=== PATIENT | male | born 1965 | race Caucasian/White ===

== ENCOUNTER 2017-07-16 15:12 | Inpatient (IN) | payer MEDICAID, OTHER ==
[~2017-07-16] VITALS: Ht 157.5 cm; Wt 83.4 kg
[2017-07-16] MEDS ORDERED: methylPREDNISolone SOD SUCC 125 MG/2 ML ONE ×2 (15:17→18:31)
[2017-07-16] MEDS ORDERED: ALBUTEROL 0.5%, 20ML ONE (15:23)
[2017-07-16] MEDS ORDERED: PLEASE ENTER ALLERGIES MC SCH (15:30)
[2017-07-16] MEDS ORDERED: MAGNESIUM SULFATE PMX 2GM/50ML 50 ML IVPB ONE (15:30)
[2017-07-16] MEDS ORDERED: methylPREDNISolone SOD SUCC 125 MG/2 ML IVP ONE (15:30)
[2017-07-16] MEDS ORDERED: SODIUM CHLORIDE FLUSH 10ML SYR IVF ONE (15:30)
[2017-07-16 15:46] LABS: MEAN CORPUSCULAR HEMOGLOBIN 29.1 pg (27.5-34.5); MEAN CORPUSCULAR HGB CONC 32.8 g/dL (33.2-36.2); MEAN CORPUSCULAR VOLUME 88.9 fL (81-97); MEAN PLATELET VOLUME 8.8 fL (7.4-10.4); PLATELET COUNT 211 x10^3/uL (130-400); RED BLOOD COUNT 5.93 x10^6/uL (4.38-5.82); RED CELL DISTRIBUTION WIDTH 15.3 % (9.4-14.8)
[2017-07-16 15:57] LABS: ALBUMIN 3.7 g/dL (3.4-5.0); ANION GAP 8 mmol/L (5-15); CALCIUM 8.5 mg/dL (8.5-10.1); CHLORIDE 106 mmol/L (98-107)
[2017-07-16] MEDS ORDERED: ALBUTEROL 0.5%, 20ML NPPBCONT ONE (16:00)
[2017-07-16] MEDS ORDERED: ACETAMINOPHEN 325 MG TABLET PO ONE (16:00)
[2017-07-16 16:07] LABS: BASOPHILS # (AUTO) 0.11 x10^3/uL (0-0.1); BASOPHILS % (AUTO) 1 % (0-1); EOSINOPHILS % (AUTO) 2 % (1-7); LYMPHOCYTES # (AUTO) 1.64 x10^3/uL (1-3.4); LYMPHOCYTES % (AUTO) 13 % (22-44); MD SCAN; MONOCYTES # (AUTO) 2.03 x10^3/uL (0.2-0.8); MONOCYTES % (AUTO) 16 % (2-9); NEUTROPHILS # (AUTO) 8.78 x10^3/uL (1.8-6.8); NEUTROPHILS % (AUTO) 69 % (42-75)
[2017-07-16 16:13] LABS: RAPID INFLUENZA A POSITIVE (Negative); RAPID INFLUENZA B Negative (Negative)
[2017-07-16] MEDS ORDERED: ACETAMINOPHEN 325 MG TABLET ONE (16:14)
[2017-07-16 16:18] LABS: CREATININE 0.95 mg/dL (0.7-1.3)
[2017-07-16] MEDS ORDERED: SODIUM CHLORIDE 0.9% 1,000 ML IV ONE (17:33)
[2017-07-16] MEDS ORDERED: SODIUM CHLORIDE FLUSH 10ML SYR IVF PRN (18:00)
[2017-07-16] MEDS ORDERED: POLYETHYLENE GLYCOL 17 GM PACKET PO PRN (18:00)
[2017-07-16] MEDS ORDERED: DOCUSATE 100 MG CAPSULE PO PRN (18:00)
[2017-07-16] MEDS ORDERED: BISACODYL 10 MG SUPP PR PRN (18:00)
[2017-07-16] MEDS ORDERED: OSELTAMIVIR 75 MG CAPSULE PO ONE (18:00)
[2017-07-16 18:11] LABS: TROPONIN I < 0.015 ng/mL (0.000-0.045)
[2017-07-16] MEDS: DOXYCYCLINE 100 MG in DEXTROSE 5% 250 ML IV SCH (18:27)
[2017-07-16] MEDS ORDERED: ENOXAPARIN 40 MG/0.4 ML ONE (18:31)
[2017-07-16] MEDS: methylPREDNISolone SOD SUCC 125 MG/2 ML IVPush SCH (18:34)
[2017-07-16] MEDS: ENOXAPARIN 40 MG/0.4 ML SQ SCH (18:34)
[2017-07-16] MEDS: NICOTINE 14MG/24 HR PATCH.TD24 TD SCH (20:50)
[2017-07-16] MEDS ORDERED: ALBUTEROL SULFATE 2.5 MG/3 ML NPPB PRN (21:30)
[2017-07-16] MEDS: ALBUTEROL SULFATE 2.5 MG/3 ML NPPB SCH (22:06)
[2017-07-16] MEDS: FAMOTIDINE 20 MG/2 ML IVPush SCH (22:51)
[2017-07-17] MEDS: methylPREDNISolone SOD SUCC 125 MG/2 ML IVPush SCH ×4 (00:12→18:05)
[2017-07-17 00:28] VITALS: BP 116/76
[2017-07-17 01:28] VITALS: BP 128/80
[2017-07-17] MEDS: ALBUTEROL SULFATE 2.5 MG/3 ML NPPB SCH ×6 (02:03→22:38)
[2017-07-17 04:00] VITALS: BP 106/60
[2017-07-17 04:46] LABS: BASOPHILS # (AUTO) 0.03 x10^3/uL (0-0.1); BASOPHILS % (AUTO) 0 % (0-1); EOSINOPHILS % (AUTO) 0 % (1-7); LYMPHOCYTES # (AUTO) 1.12 x10^3/uL (1-3.4); LYMPHOCYTES % (AUTO) 7 % (22-44); MD NO; MEAN CORPUSCULAR HEMOGLOBIN 29.6 pg (27.5-34.5); MEAN CORPUSCULAR HGB CONC 33.3 g/dL (33.2-36.2); MEAN PLATELET VOLUME 9.1 fL (7.4-10.4); MONOCYTES % (AUTO) 2 % (2-9); NEUTROPHILS # (AUTO) 15.43 x10^3/uL (1.8-6.8); NEUTROPHILS % (AUTO) 91 % (42-75); PLATELET COUNT 200 x10^3/uL (130-400); RED BLOOD COUNT 5.15 x10^6/uL (4.38-5.82); RED CELL DISTRIBUTION WIDTH 15.1 % (9.4-14.8)
[2017-07-17 04:47] LABS: ANION GAP 9 mmol/L (5-15); CALCIUM 8.2 mg/dL (8.5-10.1); CHLORIDE 107 mmol/L (98-107)
[2017-07-17 04:51] LABS: ALANINE AMINOTRANSFERASE 20 U/L (12-78); ALKALINE PHOSPHATASE 88 U/L (45-117); BILIRUBIN,TOTAL 0.4 mg/dL (0.2-1.0); CREATININE 0.99 mg/dL (0.7-1.3); TOTAL PROTEIN 6.6 g/dL (6.4-8.2)
[2017-07-17] MEDS: DOXYCYCLINE 100 MG in DEXTROSE 5% 250 ML IV SCH ×2 (05:39→18:04)
[2017-07-17] MEDS: FAMOTIDINE 20 MG/2 ML IVPush SCH ×2 (07:59→21:52)
[2017-07-17] MEDS ORDERED: POTASSIUM CHLORIDE 20 MEQ TAB.ER.PRT PO ONE (08:00)
[2017-07-17] MEDS: OSELTAMIVIR 75 MG CAPSULE PO SCH ×2 (11:42→21:52)
[2017-07-17] MEDS: NICOTINE 14MG/24 HR PATCH.TD24 TD SCH (18:00)
[2017-07-17] MEDS: ENOXAPARIN 40 MG/0.4 ML SQ SCH (18:04)
[2017-07-18] MEDS: methylPREDNISolone SOD SUCC 125 MG/2 ML IVPush SCH ×4 (00:57→18:08)
[2017-07-18 04:00] VITALS: BP 91/61
[2017-07-18] MEDS: ALBUTEROL SULFATE 2.5 MG/3 ML NPPB SCH ×5 (05:40→23:44)
[2017-07-18] MEDS: DOXYCYCLINE 100 MG in DEXTROSE 5% 250 ML IV SCH ×2 (06:16→19:40)
[2017-07-18] MEDS: OSELTAMIVIR 75 MG CAPSULE PO SCH ×2 (09:00→19:40)
[2017-07-18] MEDS: FAMOTIDINE 20 MG/2 ML IVPush SCH ×2 (09:00→19:40)
[2017-07-18 13:45] VITALS: BP 119/67
[2017-07-18] MEDS: ENOXAPARIN 40 MG/0.4 ML SQ SCH (18:00)
[2017-07-18] MEDS: NICOTINE 14MG/24 HR PATCH.TD24 TD SCH (18:07)
[2017-07-18 19:05] VITALS: BP 124/68
[2017-07-19] MEDS: methylPREDNISolone SOD SUCC 125 MG/2 ML IVPush SCH ×2 (00:24→05:43)
[2017-07-19 00:33] VITALS: BP 114/69
[2017-07-19] MEDS: ALBUTEROL SULFATE 2.5 MG/3 ML NPPB SCH ×2 (07:15→10:50)
[2017-07-19 07:17] VITALS: BP 119/75
[2017-07-19 08:13] LABS: ANION GAP 6 mmol/L (5-15); CALCIUM 8.6 mg/dL (8.5-10.1); CHLORIDE 103 mmol/L (98-107); CREATININE 0.89 mg/dL (0.7-1.3)
[2017-07-19] MEDS: DOXYCYCLINE 100 MG in DEXTROSE 5% 250 ML IV SCH (08:38)
[2017-07-19] MEDS: OSELTAMIVIR 75 MG CAPSULE PO SCH (08:38)
[2017-07-19] MEDS: FAMOTIDINE 20 MG/2 ML IVPush SCH (08:38)
[2017-07-19 13:29] VITALS: BP 121/68
[2017-07-19] MEDS ORDERED: PRED10TA PO (13:51)
[2017-07-19] MEDS ORDERED: OSEL75CA PO (13:51)
[2017-07-19] MEDS ORDERED: ALBU2.5V NPPB (13:51)
[2017-07-19] MEDS ORDERED: PNEUMOCOCCAL 23 VACCINE IM-VACC ONE (14:30)
[2017-07-19] MEDS ORDERED: FLU VACC QS2017-18 (36MOS+) UP/PF 0.5 ML IM-VACC ONE (14:30)
== END 2017-07-19 15:17 | disposition home or self-care (01) | DRG 193 ==
LOC: ED 17:32 → EDIP 17:33 → ED 18:58 → CCU 19:16 → 3NE 07-18 11:34
PROVIDERS: ADMIT Hospitalist; ATTEND Hospitalist
DX: J10.1 Influenza due to other identified influenza virus with other respiratory manifestations (principal); J96.21 Acute and chronic respiratory failure with hypoxia; J44.1 Chronic obstructive pulmonary disease with (acute) exacerbation; J45.51 Severe persistent asthma with (acute) exacerbation; F17.210 Nicotine dependence, cigarettes, uncomplicated; F41.9 Anxiety disorder, unspecified; Z82.5 Family history of asthma and other chronic lower respiratory diseases
CPT/HCPCS: 36415; 36600; 71045; 80048; 80053; 82040; 82803; 83605; 83735; 83880; 84484; 85025; 87081; 87400; 90686; 90732; 93005; 94640; 94644; 96374; 96375; J1650; J7060; J7613; J2930; J3475; J7512; S0028